=== PATIENT | female | born 1990 | race Caucasian/White ===

== ENCOUNTER 2020-03-25 14:46 | Outpatient (REF) | payer OTHER, SELFPAY | END 2020-03-25 14:47 | disposition home or self-care (01) | LOC: HO.LNP 14:46 | PROVIDERS: Visit Provider Hospitalist | DX: Z20.828 Contact with and (suspected) exposure to other viral communicable diseases (principal) | CPT/HCPCS: U0003 ==

== ENCOUNTER 2022-04-20 08:49 | Outpatient (REF) | payer BC, SELFPAY ==
[2022-04-20 13:12] LABS: HCG Quantitative < 2 mIU/mL
[2022-04-25 01:23] LABS: Estradiol Free 0.15 pg/mL; Estradiol, Ultrasensitive 8 pg/mL; Follicle Stimulating Hormone 2.6 mIU/mL; Prolactin 6.1 ng/mL
== END 2022-04-20 08:50 | disposition home or self-care (01) ==
LOC: HO.WFDLDS 08:49
PROVIDERS: Visit Provider Obstetrics & Gynecology
DX: N92.1 Excessive and frequent menstruation with irregular cycle (principal); N91.1 Secondary amenorrhea
CPT/HCPCS: 36415; 82670; 82681; 83001; 84146; 84443; 84702